=== PATIENT | female | born 1985 | race Caucasian/White ===

== ENCOUNTER → 2018-02-07 | Outpatient (REF) | payer OTHER | LOC: M LAB REF 13:25 | DX: R30.0 Dysuria (principal) ==

== ENCOUNTER → 2021-02-09 | Outpatient (CLI) | payer OTHER ==
[~2021-02-09] MED LIST: DOCU5LIQ PO; HYDR1SUP3 PR; IBUP600T26 PO; MAPA500T17 PO; MOM30SS PO; PRENTAB74 PO
--- NOTE | 2021-02-10 21:48 | ECHO ---
ECHOCARDIOGRAM DATE OF PROCEDURE: 02/09/2021 Age: Gender: Female Height: 67 inches Weight: 135 pounds REFERRING PHYSICIAN: Neda Booth M.D. INDICATION: Dyspnea, unspecified. MEASUREMENTS: 2D Measurements: Aortic root 2.9 cm Left atrium 3.2 cm Intraventricular septum 0.4 cm Posterior wall 0.4 cm Left ventricle diastole 3.6 cm Left atrial volume index 22 Inferior vena cava 2.0 cm Doppler Measurements: No aortic stenosis or regurgitation Aortic valve velocity 105 cm/sec LVOT velocity 6.2 cm/sec LVOT VTI 18.2 cm Trace mitral regurgitation Mitral E velocity 105 cm/sec Mitral A velocity 60.8 cm/sec Mitral deceleration time 201 msec Trace tricuspid regurgitation Estimated right ventricle systolic pressure 19-24 mmHg Estimated right atrial pressure 5-10 mmHg No pulmonic regurgitation Pulmonary artery acceleration time 198 msec MITRAL ANNULAR TISSUE DOPPLER: E prime septal 12.7 cm/sec E prime lateral 14.4 cm/sec DESCRIPTION: Rhythm was sinus. Image quality was good. No pericardial effusion. This was a 2D, M-mode, color flow Doppler and pulse wave Doppler examination and included mitral annular tissue Doppler.. CONCLUSIONS: 1. Normal echocardiogram Doppler. 2. Normal left ventricle internal dimensions and wall thickness. Normal regional left ventricular (LV) wall motion and wall thickening. Normal LV systolic function. Left ventricular ejection fraction (LVEF) 60% by visual assessment. Normal LV diastolic function. 3. Suggestive of normal pulmonary free systolic pressure and estimated right ventricular (RV) systolic pressure.
== END ==
LOC: M CARPUL 10:03
DX: E06.3 Autoimmune thyroiditis (principal)

== ENCOUNTER → 2021-04-04 | Outpatient (CLI) | payer OTHER | LOC: M RAD 11:50 | PROVIDERS: ATTEND Nurse Practitioner | DX: E06.3 Autoimmune thyroiditis (principal) ==

== ENCOUNTER → 2022-11-07 | Outpatient (CLI) | payer OTHER | LOC: M RAD 12:55 | PROVIDERS: ATTEND Physician Assistant Medical | DX: R10.9 Unspecified abdominal pain (principal) ==

== ENCOUNTER → 2022-12-31 | Outpatient (CLI) | payer OTHER ==
[~2022-12-31] MED LIST changes: +ISOVUE-370 76% 100ML VIAL As Ordered ONE
== END ==
LOC: M RAD 14:04
PROVIDERS: ATTEND Nurse Practitioner
DX: R07.9 Chest pain, unspecified (principal)
CPT/HCPCS: 71275; Q9967